=== PATIENT | female | born 1980 | race American Indian/Alaskan Native ===

== ENCOUNTER 2018-05-14 14:00 | Inpatient (IN) | payer OTHER ==
[~2018-05-14] VITALS: Ht 165.1 cm; Wt 87.5 kg
[~2018-05-14 14:00] MED LIST: SYNTHROID50 MCG PO
[2018-05-14] MEDS ORDERED: SYNTHROID88 MCG PO (15:28)
[2018-05-22] MEDS ORDERED: IBUPROFEN800 MG PO (07:07)
[2018-05-22] MEDS ORDERED: POLY119PG PO (07:07)
[2018-05-22] MEDS ORDERED: GAS RELIEF125 MG PO (07:07)
[2018-05-22] MEDS ORDERED: GABAPENTIN600 MG PO (07:07)
== END 2018-05-22 10:26 | DRG 743 ==
LOC: OB/GYN 05-20 05:20 → O/R 05-20 05:20 → SURH 05-20 07:00 → OB/GYN 05-20 11:14 → SURH 05-20 14:00 → OB/GYN 05-22 10:26
PROVIDERS: ADMIT Obstetrics & Gynecology
PROC: 0UT90ZZ Resection of Uterus, Open Approach (ICD-10-PCS; principal; 2018-05-20 07:00)
PROC: 0UT70ZZ Resection of Bilateral Fallopian Tubes, Open Approach (ICD-10-PCS; 2018-05-20 07:00)
DX: N84.0 Polyp of corpus uteri (principal); D25.9 Leiomyoma of uterus, unspecified; D64.89 Other specified anemias; Z88.0 Allergy status to penicillin